=== PATIENT | female | born 1965 | race African-American/Black ===

== ENCOUNTER 2020-12-28 13:46 | Emergency (ER) | payer MEDICARE ==
[~2020-12-28] VITALS: Ht 160 cm; Wt 68.1 kg
[2020-12-28 13:50] VITALS: BP 148/108
[2020-12-28] MEDS ORDERED: MORPHINE SULFATE 4 MG/ML DISP.SYRIN. IM ONE ×2 (14:00→15:45)
[2020-12-28] MEDS ORDERED: LIDOCAINE 1% Multi-Dose 20 ML VIAL. IJ ONE (14:00)
--- NOTE | 2020-12-28 14:04 | PHYS DOC ---
Past History Past Medical History: Anxiety, Depression General Adult HPI: HPI: 55F p/w mechanical slip and fall injury just prior to arrival. Struck her face against the concrete ground. Sustained avulsion of tip of frontal incisor, with non-full thicken mucosal lac of inner upper lip. Also sustained lac to outer upper lip. No LOC. No AC or antiplatelet use. In addition, patient reports reproducible right far lateral chest wall pain, worsened with direct palpation. Review of Systems: Review of Systems: Gen: No fever, chills. Eyes: No blurred vision, diplopia. ENT: No epistaxis. Reports facial pain. CV: No syncope. Reports chest wall pain. Resp. No SOB, cough. GI: No abd pain, N/V. : No perineal pain, hematuria. Neuro: No FAN, dizziness, weakness. MSK: No extremity or back pain. Skin: Reports laceration. Remainder of systems reviewed and negative unless otherwise specified. Physical Exam: PE: Gen: NAD. Well nourished. Head: NC/AT. Eyes: No scleral icterus. No conjunctival injection. PERRL. ENT: MMM. Posterior OP clear. No epistaxis or septal hematoma. Avulsion of tip of frontal incisor. 1 cm superficial oral mucosal laceration of the inner upper lip. 1 cm linear transverse laceration to the outer/upper lip, just inferior to the vermilion border without direct vermilion border involvement. Neck: Supple. NT. CV: RRR. Peripheral pulses intact. Resp: CTAB. Chest: No anterior chest wall TTP. Symmetric chest rise. Abd: Soft. NT. ND. MSK: No peripheral cyanosis. No edema. Extremities atraumatic x4. Back: No midline spinal TTP or stepoffs. Neuro: A&Ox3. Strength & sensation grossly intact throughout. GCS 15. Skin. Warm. Dry. Psych: Appropriate mood & affect. EKG: EKG: [] Radiology/Procedures: Radiology/Procedures: CT head , maxillofacial and cervical spine without contrast 12/28/2020 2:24 PM INDICATION: Fall, closed head injury COMPARISON: CT maxillofacial 01/06/2008 TECHNIQUE: Multiple axial CT images of the head were obtained from skull base through the vertex without intravenous contrast. Multiple axial CT images of the cervical spine and maxillofacial structures were obtained without intravenous contrast. Coronal and sagittal reformats are provided. FINDINGS: Head and maxillofacial: 12 mm ossific density protruding from the outer cortex of the occiput favors an osteoma. Ventricles, sulci and basal cisterns are within normal limits. There is no hydrocephalus. Almaguer-white matter differentiation is normal. There is no acute intracranial hemorrhage. There is no mass, mass effect or midline shift. Posterior fossa is normal in appearance. Osseous orbits are intact. Globes are spherical and contour. There is no lens dislocation. Extraocular muscles are intact. No intraconal or extraconal mass is identified. Skull base is intact. Nasal bones are intact. Nasal septum is predominantly midline. Paranasal sinuses are well aerated. No acute fracture of the paranasal sinuses is identified. Pterygoid plates are intact. Temporomandibular joints are well aligned. Mastoid air cells are well aerated. Middle ear cavities are well aerated. Visualized nasopharynx and oropharynx are intact. Soft tissues are normal. Maxilla and mandible are intact. Visualized dentition appear normal. Cervical spine: Alignment of the cervical spine is normal. Anterior cervical discectomy and fusion hardware is identified from C3 through C6. Ventral plate and screws are identified from C4 through C6. Screws within the C3 and C4 vertebral body demonstrate lucency surrounding the screws with surrounding sclerosis. Findings could represent loosening of the hardware or sequela of prior infection. Vertebral screws from C4 through C6 appear intact with intact plate and complete osseous incorporation. No residual osseous spinal canal stenosis. Partial fusion of the facet joints noted. Skull base is intact. Craniocervical junction is normal in appearance. Atlantoaxial articulation is normal. Vertebral body heights are maintained without evidence for acute fracture. There is no prevertebral soft tissue swelling. Thyroid gland is normal in appearance. Visualized portions of the lung apices are normal without evidence for suspicious pulmonary nodule or infiltrate. IMPRESSION: 1. No acute intracranial hemorrhage. 2. No acute fracture of the maxillofacial structures. 3. No acute fracture or malalignment of the cervical spine. There is lucency surrounding the hardware at C3-C4 which is nonspecific. No definite osseous erosions are identified to suggest active inflammation/infection. Consideration may be given for hardware loosening/hardware failure. 4. Anterior cervical discectomy and fusion from C4 through C6 with complete incorporation. No lucency surrounding the hardware to suggest hardware failure. Electronically signed by: Fanny Freed MD (12/28/2020 2:49 PM) [id number] RIBS RIGHT AND PA CHEST Right RIBS with PA chest. HISTORY: Right chest wall pain PA view was taken of the chest. There is no pneumothorax or pleural effusion. Lungs are clear. Heart is normal in size. AP and oblique views were taken of the right ribs. There is no fracture or acute osseous abnormality in the right ribs. IMPRESSION: 1. No acute chest disease. 2. No right rib fracture noted. Electronically signed by: Spencer Bose MD (12/28/2020 3:07 PM) [id number] DICTATED AND SIGNED BY: SPENCER BOSE MD Heart Score: C/O Chest Pain: N/A Risk Factors: Risk Factors: DM, Current or recent (<one month) smoker, HTN, HLP, family history of CAD, obesity. Risk Scores: Score 0 - 3: 2.5% MACE over next 6 weeks - Discharge Home Score 4 - 6: 20.3% MACE over next 6 weeks - Admit for Clinical Observation Score 7 - 10: 72.7% MACE over next 6 weeks - Early Invasive Strategies Course & Med Decision Making: Course & Med Decision Making Pertinent Labs and Imaging studies reviewed. (See chart for details) In summary, 55F p/w facial contusion, CHI, reproducible right chest wall pain s/p mechanical fall without LOC prior to arrival. Sustained avulsion of tip of upper frontal incisor, inner upper lip mucosal lac (does not require repair), and a subcentimeter transverse lac to upper lip that does not cross ross. CTH/CS/MF negative. No cervical TTP or limitations with AROM. Do not suspect cervical hardware failure. Tdap UTD. External lip lac repaired with vicryl by [employer] to prevent gaping of wound. Will DC with Rx lido patches, flexeril. Return precautions given. Dragon Disclaimer: Dragon Disclaimer: This electronic medical record was generated, in whole or in part, using a voice recognition dictation system. Departure Departure: Impression: Primary Impression: Contusion of right chest wall Additional Impressions: Facial laceration Fracture of incisor teeth Laceration of mouth Disposition: 01 DC HOME SELF CARE/HOMELESS Condition: STABLE Referrals: PCP,UNKNOWN (PCP) Patient Instructions: Chest Contusion, [id number], Facial Laceration, [id number] Scripts Lidocaine (Lidocaine PATCH ) 1 Each Adh..patch 1 EACH TP DAILY for FOR LOCAL PAIN, #10 PATCH REMOVE AFTER 12 HOURS Prov: LESIA HERNDON DO 12/28/20 Cyclobenzaprine Hcl (CYCLOBENZAPRINE HCL) 10 Mg Tablet 1 TAB PO TID for muscle pain/spasm, #30 TAB Prov: LESIA HERNDON DO 12/28/20 LESIA HERNDON DO Dec 28, 2020 14:04
--- NOTE | 2020-12-28 14:52 | RAD ---
PQRS Compliance Statement: One or more of the following individualized dose reduction techniques were utilized for this examinat ion: 1. Automated exposure control 2. Adjustment of the mA and/or kV according to patient size 3. Use of iterative reconstruction technique CT head , maxillofacial and cervical spine without contrast 12/28/2020 2:24 PM INDICATION: Fall, closed head injury COMPARISON: CT maxillofacial 01/06/2008 TECHNIQUE: Multiple axial CT images of the head were obtained from skull base through the vertex with out intravenous contrast. Multiple axial CT images of the cervical spine and maxillofacial structures were obtained without intravenous contrast. Coronal and sagittal reformats are provided. FINDINGS: Head and maxillofacial: 12 mm ossific density protruding from the outer cortex of the occiput favors an osteoma. Ventricles, sulci and basal cisterns are within normal limits. There is no hydrocephalus. Almaguer-white matter diffe rentiation is normal. There is no acute intracranial hemorrhage. There is no mass, mass effect or mid line shift. Posterior fossa is normal in appearance. Osseous orbits are intact. Globes are spherical and contour. There is no lens dislocation. Extraocula r muscles are intact. No intraconal or extraconal mass is identified. Skull base is intact. Nasal bones are intact. Nasal septum is predominantly midline. Paranasal sinuses are well aerated. No acute fracture of the paranasal sinuses is identified. Pterygoid plates are intact. Temporomandibular joints are well aligned. Mastoid air cells are well aerated. Middle ear cavities ar e well aerated. Visualized nasopharynx and oropharynx are intact. Soft tissues are normal. Maxilla and mandible are intact. Visualized dentition appear normal. Cervical spine: Alignment of the cervical spine is normal. Anterior cervical discectomy and fusion hardware is identi fied from C3 through C6. Ventral plate and screws are identified from C4 through C6. Screws within th e C3 and C4 vertebral body demonstrate lucency surrounding the screws with surrounding sclerosis. Fin dings could represent loosening of the hardware or sequela of prior infection. Vertebral screws from C4 through C6 appear intact with intact plate and complete osseous incorporation. No residual osseous spinal canal stenosis. Partial fusion of the facet joints noted. Skull base is intact. Craniocervica l junction is normal in appearance. Atlantoaxial articulation is normal. Vertebral body heights are maintained without evidence for acute fracture. There is no prevertebral soft tissue swelling. Thyroid gland is normal in appearance. Visualized port ions of the lung apices are normal without evidence for suspicious pulmonary nodule or infiltrate. IMPRESSION: 1. No acute intracranial hemorrhage. 2. No acute fracture of the maxillofacial structures. 3. No acute fracture or malalignment of the cervical spine. There is lucency surrounding the hardware at C3-C4 which is nonspecific. No definite osseous erosions are identified to suggest active inflamm ation/infection. Consideration may be given for hardware loosening/hardware failure. 4. Anterior cervical discectomy and fusion from C4 through C6 with complete incorporation. No lucency surrounding the hardware to suggest hardware failure. Electronically signed by: Fanny Freed MD (12/28/2020 2:49 PM) [id number]
--- NOTE | 2020-12-28 15:10 | RAD ---
Right RIBS with PA chest. HISTORY: Right chest wall pain PA view was taken of the chest. There is no pneumothorax or pleural effusion. Lungs are clear. Heart is normal in size. AP and oblique views were taken of the right ribs. There is no fracture or acute osseous abnormality in the right ribs. IMPRESSION: 1. No acute chest disease. 2. No right rib fracture noted. Electronically signed by: Spencer Bose MD (12/28/2020 3:07 PM) [id number]
[2020-12-28] MEDS ORDERED: LIDO700A21 TP (15:37)
[2020-12-28] MEDS ORDERED: CYCL-331 PO (15:37)
== END 2020-12-28 15:45 | disposition home or self-care (01) ==
LOC: ER 13:46
DX: S02.5XXA Fracture of tooth (traumatic), initial encounter for closed fracture (principal); S01.511A Laceration without foreign body of lip, initial encounter; S01.512A Laceration without foreign body of oral cavity, initial encounter; S20.211A Contusion of right front wall of thorax, initial encounter; W01.198A Fall on same level from slipping, tripping and stumbling with subsequent striking against other object, initial encounter; Y93.89 Activity, other specified; Y92.89 Other specified places as the place of occurrence of the external cause; Y99.8 Other external cause status
CPT/HCPCS: 12011; 70450; 70486; 71101; 72125; 96372; 99285; J2270

== ENCOUNTER 2021-01-03 15:37 | Emergency (ER) | payer MEDICARE ==
[~2021-01-03] VITALS: Ht 160 cm; Wt 68.1 kg
[~2021-01-03 15:37] MED LIST: CYCL-331 PO; LIDO700A21 TP
[2021-01-03 16:20] VITALS: BP 149/94
[2021-01-03] MEDS ORDERED: DIPH,PERTUSS(ACELL),TET VAC/PF 0.5 ML SYRINGE. VAX IM ONE (17:45)
--- NOTE | 2021-01-03 17:46 | PHYS DOC ---
Past History Past Medical History: Anxiety, COPD, Depression, HIV, Other Additional Past Medical Histor: spinal stenosis, tachycaridia, sarcodosis, PTSD, Past Surgical History: Other Additional Past Surgical Histo: 3 discetomy Alcohol Use: Heavy Adult General Chief Complaint Chief Complaint: Neck Pain HPI HPI Patient is a 55-year-old female presents to the emergency department complaining of needing a tetanus immunization. Patient states she was here a week ago and treated for an abrasion to her face, states she initially told the ED staff her tetanus immunization was up-to-date, however after she was discharged to home she realized that she had not had a recent tetanus immunization. Patient states this worries her as she fears she might catch tetanus. Patient states she read the symptoms of tetanus, and states that she has had intermittent jaw pain and intermittent abdominal tightness since reading the symptoms. Patient denies any other physical complaints or physical concerns. Patient reports she is currently taking amoxicillin with clavulanic acid twice a day on a 10-day regimen which she started last Sunday. Patient currently denies jaw pain or abdominal tightness. Patient denies chest pain or shortness of breath. Patient denies muscle spasms. Patient denies any vision disturbances or vision changes, denies numbness or tingling to her extremities. Patient denies any swelling to her extremities. Patient denies any increased thirst or increased urination. Patient states she does not smoke cigarettes, states that she smokes marijuana daily, states that she drinks daily, states her last alcohol consumption was a Budweiser ice type beverage that she drink at noon today. Patient denies any other physical complaints or physical concerns. Review of Systems Review of Systems 14 body systems of review of systems have been reviewed. See HPI for pertinent positives and negative responses, otherwise all other systems are negative, nonpertinent or noncontributory. Current Medications Current Medications Current Medications Medications (Trade) Dose Ordered Sig/Bryon Start Time Stop Time Status Last Admin Dose Admin Diphtheria/ Pertussis/Tetanus Vacc (ADACEL TDap SYRINGE) 0.5 ml ONCE ONCE 01/03/21 17:45 01/03/21 17:46 UNV Allergies Allergies Allergies Coded Allergies Type Severity Reaction Last Updated Verified duloxetine Allergy Unknown 01/03/21 Yes ibuprofen Allergy Unknown 01/03/21 Yes pregabalin Allergy Unknown 01/03/21 Yes Physical Exam Physical Exam Constitutional: Well developed, well nourished, no acute distress, non-toxic appearance. 55-year-old female no apparent distress. Patient appears clinically sober. HENT: Normocephalic, atraumatic, bilateral external ears normal, oropharynx moist, no oral exudates, nose normal. No meningismus signs, no trismus, no muscle spasm of the face appreciated. No drooling appreciated. Negative spatula test. Eyes: PERRLA, EOMI, conjunctiva normal, no discharge. Neck: Normal range of motion, no tenderness, supple, no stridor. No nuchal rigidity, no meningismus signs. Cardiovascular:Heart rate regular rhythm, no murmur, heart sounds S1-S2. Lungs & Thorax: Bilateral breath sounds clear to auscultation all lung shah. Abdomen: Bowel sounds normal, soft, no tenderness, no masses, no pulsatile masses. Skin: Warm, dry, no erythema, no rash. Back: No tenderness, no CVA tenderness. No muscle spasms of the back appreciated. Extremities: No tenderness, no cyanosis, no clubbing, ROM intact, no edema. No muscle spasms appreciated. Neurologic: Alert and oriented X 3, normal motor function, normal sensory function, no focal deficits noted. Psychologic: Affect normal, judgement normal, mood normal. Current Patient Data Vital Signs Vital Signs Date Time Temp Pulse Resp B/P (MAP) Pulse Ox O2 Delivery O2 Flow Rate FiO2 01/03/21 16:20 97.0 116 16 149/94 (112) 97 Room Air EKG EKG [] Radiology/Procedures Radiology/Procedures [] Heart Score C/O Chest Pain: No Risk Factors: Risk Factors: DM, Current or recent (<one month) smoker, HTN, HLP, family history of CAD, obesity. Risk Scores: Risk Factors: DM, Current or recent (<one month) smoker, HTN, HLP, family history of CAD, obesity. Course & Med Decision Making Course & Med Decision Making Pertinent Labs and Imaging studies reviewed. (See chart for details) 55-year-old female, vital signs reviewed, presents to the emergency department concerning she might catch tetanus if she does not get a tetanus shot. Physical examination was unremarkable, negative spatula test, no masseter spasm, sardonic smile, facial myalgias, facial weaknesses, facial muscle cramps, dysphagia, drooling, hydra phobia, or irritability noted during physical exam. This is a low likelihood of tetanus infection. Will give tetanus immunization today in the emergency department. Discharged home. Eleonora Disclaimer Eleonora Disclaimer This electronic medical record was generated, in whole or in part, using a voice recognition dictation system. Departure Departure: Impression: Primary Impression: Need for DTaP vaccine Disposition: 01 DC HOME SELF CARE/HOMELESS Condition: GOOD Referrals: BRENDEN AGUILERA (PCP) Additional Instructions: You have been given a tetanus immunization today in the emergency department. Please see you have an additional immunization for DTaP after a 5-year period of time. Please follow-up with your primary care doctor this week for ongoing symptoms. Please return to the emergency department for worsening symptoms or other concerns. EMERGENCY DEPARTMENT GENERAL DISCHARGE INSTRUCTIONS Thank you for coming to [facility] (ED) today and trusting us with you care. We trust that you had a positivie experience in our Emergency Department. If you wish to speak to the department management, you may call the director at [phone]. YOUR FOLLOW UP INSTRUCTIONS ARE FOLLOWS: 1. Do you have a private Doctor? If you do not have a private doctor, please ask for a resource list of physicians or clinics that may be able to assist you with follow up care. 2. The Emergency Physician has interpreted your x-rays. The X-Ray specialist will also review them. If there is a change in the findings, you will be notified in 48 hours when at all possible. 3. A lab test or culture has been done, your results will be reviewed and you will be notified if you need a change in treatment. ADDITIONAL INSTRUCTIONS AND INFORMATION: 1. Your care today has been supervised by a physician who is specially trained in emergency care. Many problems require more than one evaluation for a complete diagnosis and treatment. We recommend that you schedule your follow up appointment as recom mended to ensure complete treatment of you illness or injury. If you are unable to obtain follow up care and continue to have a problem, or if your condition worsens, we recommend that you return to the ED. 2. We are not able to safely determine your condition over the phone nor are we able to give sound medical advice over the phone. For these safety reasons, if you call for medical advice we will ask you to come to the ED for further evaluation. 3. If you have any questions regarding these discharge instructions please call the ED at [phone]. SAFETY INFORMATION: In the interest of safety, wellness, and injury prevention; we encourage you to wear your sealbelt, if you smoke; quite smoking, and we encourage family to use a protective helmet for bicycling and other sporting events that present an increased risk for head injury. IF YOUR SYMPTOMS WORSEN OR NEW SYMPTOMS DEVELOP, OR YOU HAVE CONCERNS ABOUT YOUR CONDITION; OR IF YOUR CONDITION WORSENS WHILE YOU ARE WAITING FOR YOUR FOLLOW UP APPOINTMENT; EITHER CONTACT YOUR PRIMARY CARE DOCTOR, THE PHYSICIAN WHOSE NAME AND NUMBER YOU WERE GIVEN, OR RETURN TO THE ED IMMEDIATELY. ADY MIDDLETON GERM DRIER Jan 03, 2021 17:46
== END 2021-01-03 17:51 | disposition home or self-care (01) ==
LOC: ER 15:37
DX: R68.84 Jaw pain (principal); R19.8 Other specified symptoms and signs involving the digestive system and abdomen; J44.9 Chronic obstructive pulmonary disease, unspecified; F43.10 Post-traumatic stress disorder, unspecified; F17.210 Nicotine dependence, cigarettes, uncomplicated; F10.20 Alcohol dependence, uncomplicated; Y90.9 Presence of alcohol in blood, level not specified; Z88.8 Allergy status to other drugs, medicaments and biological substances
CPT/HCPCS: 90471; 90715; 99284

== ENCOUNTER 2021-04-26 18:49 | Emergency (ER) | payer MEDICARE, MEDICAID ==
[~2021-04-26] VITALS: Ht 160 cm; Wt 68.1 kg
--- NOTE | 2021-04-26 19:40 | PHYS DOC ---
Past History Past Medical History: Anxiety, COPD, Depression, HIV, Other Additional Past Medical Histor: spinal stenosis, tachycaridia, sarcodosis, PTSD, Past Surgical History: Other Additional Past Surgical Histo: 3 discetomy Smoking: Cigarettes Alcohol Use: Heavy Drug Use: Marijuana General Adult EDM: Chief Complaint: HEADACHE HPI: HPI: Patient is a 55 year old female who presents with headache and bilateral low back pain that began yesterday and significantly worsened this morning. Believes pain may be related to lifting heavy bags two days ago although she did not experience any pain at that time. She took 1300mg of Tylenol and a Flexeril this morning which temporarily improved her symptoms. Back pain is worse while sitting up and radiates into her buttock and thighs. States headache worsens when leaning forward but denies photophobia, visual changes, lightheadedness, weakness, nausea, or vomiting. Review of Systems: Review of Systems: Constitutional: Denies fever or chills Eyes: Denies redness or eye pain HENT: Denies nasal congestion or sore throat Respiratory: Denies cough or shortness of breath Cardiovascular: Denies chest pain or palpitations GI: Denies abdominal pain, nausea, or vomiting : Denies dysuria or hematuria Musculoskeletal: Reports bilateral back pain. Denies joint pain Integument: Denies rash or skin lesions Neurologic: Reports headache. Denies focal weakness or sensory changes Complete systems were reviewed and found to be within normal limits, except as documented in this note. Allergies: Allergies: Allergies Coded Allergies Type Severity Reaction Last Updated Verified duloxetine Allergy Unknown 01/03/21 Yes ibuprofen Allergy Unknown 01/03/21 Yes pregabalin Allergy Unknown 01/03/21 Yes Physical Exam: PE: Constitutional: Well developed, well nourished, no acute distress, non-toxic appearance HENT: Normocephalic, atraumatic Eyes: PERRL, EOMI, conjunctiva normal, no discharge Neck: Normal range of motion, no tenderness, supple Lungs & Thorax: No respiratory distress, equal chest rise and fall Abdomen: Soft, no tenderness Skin: Warm, dry, no erythema, no rash Back: No tenderness, no CVA tenderness Extremities: No tenderness, ROM intact, no edema. 5/5 motor strength in all extremities. Neurologic: Alert and oriented X 3, normal motor function, normal sensory function, no focal deficits noted Psychologic: Affect normal, judgment normal EKG: EKG: [] Radiology/Procedures: Radiology/Procedures: [] Heart Score: C/O Chest Pain: N/A Risk Factors: Risk Factors: DM, Current or recent (<one month) smoker, HTN, HLP, family history of CAD, obesity. Course & Med Decision Making: Course & Med Decision Making Patient presents with one day history of headache and low back pain noting possible injury several days ago. Patient was afebrile, neurological exam unremarkable and meningeal signs were absent. Given Zofran, Fioricet, Norflex and Decadron with improvement of symptoms. Patient stable for discharge with outpatient follow-up with PCP. Discussed findings and plan with patient, who acknowledges understanding and agreement. Eleonora Disclaimer: Eleonora Disclaimer: This electronic medical record was generated, in whole or in part, using a voice recognition dictation system. Departure Departure: Impression: Primary Impression: Headache Qualified Codes: R51.9 - Headache, unspecified Additional Impression: Back pain Qualified Codes: M54.42 - Lumbago with sciatica, left side; M54.41 - Lumbago with sciatica, right side Disposition: HOME / SELF CARE / HOMELESS Condition: STABLE Referrals: NON,STAFF (PCP) JESU SHAFFER MD Patient Instructions: Back Pain, Adult, [id number], Headache, FAQs, Sciatica, [id number] Additional Instructions: Increase fluid hydration. ICE area of discomfort 20 min on then leave off next 20 mins. Repeat several times daily as needed for next several days. 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 Scripts Orphenadrine Citrate (ORPHENADRINE CITRATE) 100 Mg Tablet.er 1 TAB PO DAILY PRN for MUSCLE PAIN, #14 TAB 0 Refills Prov: ADY TAVAREZ DO 04/26/21 Prednisone (PREDNISONE) 20 Mg Tablet 2 TAB PO DAILY for Back pain/Headache for 4 Days, #8 TAB Start this prescription tomorrow, Sun04/27/21 Prov: ADY TAVAREZ DO 04/26/21 Ondansetron (ONDANSETRON ODT) 4 Mg Tab.rapdis 1 TAB PO PRN Q6-8HRS PRN for NAUSEA, #16 TAB Prov: ADY TAVAREZ DO 04/26/21 Butalb/Acetaminophen/Caffeine ([id number] 50-325-40) 1 Each Tablet 1 EACH PO Q6HRS PRN for HEADACHE, #14 TAB Prov: ADY TAVAREZ DO 04/26/21 ADY TAVAREZ DO Apr 26, 2021 19:40
[2021-04-26] MEDS ORDERED: BUTALB/APAP/CAFEIN 50/325/40MG TABLET. PO ONE (19:45)
[2021-04-26] MEDS ORDERED: ORPHENADRINE CITRATE 60 MG/2 ML VIAL. IM ONE (19:45)
[2021-04-26] MEDS ORDERED: ONDANSETRON ODT 4 MG TAB.RAPDIS PO ONE (19:45)
[2021-04-26] MEDS ORDERED: DEXAMETHASONE 4 MG TABLET PO ONE (19:45)
[2021-04-26] MEDS ORDERED: BUTA1TAB23 PO (19:47)
[2021-04-26] MEDS ORDERED: ONDA4TAB12 PO (19:47)
[2021-04-26] MEDS ORDERED: PRED20TA PO (19:47)
[2021-04-26] MEDS ORDERED: ORPH-16 PO (19:47)
[2021-04-26 21:08] VITALS: BP 140/79
== END 2021-04-26 21:08 | disposition home or self-care (01) ==
LOC: ER 18:49
DX: R51.9 Headache, unspecified (principal); M54.42 Lumbago with sciatica, left side; M54.41 Lumbago with sciatica, right side; J44.9 Chronic obstructive pulmonary disease, unspecified; F17.210 Nicotine dependence, cigarettes, uncomplicated; F10.20 Alcohol dependence, uncomplicated; Z88.6 Allergy status to analgesic agent; Z88.8 Allergy status to other drugs, medicaments and biological substances; Y90.9 Presence of alcohol in blood, level not specified
CPT/HCPCS: 96372; 99284; J2360; J8540; Q0162